=== PATIENT | male | born 1985 | race Caucasian/White ===

== ENCOUNTER → 2019-11-27 20:26 | Outpatient (CLI) | payer OTHER, SELFPAY ==
[2019-09-08 11:15] VITALS: BMI 26.6
[2019-11-18 10:40] VITALS: BMI 26.6
== END ==
LOC: SL 20:26
PROVIDERS: Referring Provider Specialist; Visit Provider Specialist
DX: G47.30 Sleep apnea, unspecified (principal)
CPT/HCPCS: 95810

== ENCOUNTER → 2019-12-26 20:46 | Outpatient (CLI) | payer OTHER, SELFPAY ==
[2019-11-18 10:40] VITALS: BMI 26.6
== END ==
PROVIDERS: Visit Provider Nurse Practitioner Acute Care
DX: G47.33 Obstructive sleep apnea (adult) (pediatric) (principal)
CPT/HCPCS: 95811

== ENCOUNTER → 2020-01-21 13:48 | Outpatient (CLI) | payer OTHER, SELFPAY ==
[2020-01-07 15:53] VITALS: BMI 28.8
== END ==
PROVIDERS: Referring Provider Nurse Practitioner Acute Care; Visit Provider Nurse Practitioner Acute Care
DX: Z00.00 Encounter for general adult medical examination without abnormal findings (principal)

== ENCOUNTER → 2020-02-19 14:07 | Outpatient (CLI) | payer OTHER, SELFPAY ==
[2020-01-07 15:53] VITALS: BMI 28.8
--- NOTE | 2020-02-19 14:08 | STE_ITS ---
Reason For Study: Chest Pain; Palpitations Stress Results Protocol: [facility]ando Protocol Maximum Predicted HR: 187 bpm Target HR: 159 bpm % Maximum Predicted HR: 90 % DurationHeart Rate Stage (mm:ss) (bpm) BP Comment Baseline 77 122/86Mild Chest Pain [facility]ando Protocol Stage I 3:00 96 116/70Mild Chest Pain [facility]ando Protocol Stage II 3:00 108 128/68Mild Chest Pain [facility]ando Protocol Stage III 3:00 118 134/60Mild Chest Pain Armando Protocol Stage IV 3:00 153 146/74Mild Chest Pain Armando Protocol Stage V 3:00 169 140/72Mild to Mod Chest Pain Recovery 106 126/70Mild Chest Pain Stress Duration: 15:00 mm:ss Maximum Stress HR: 169 bpm METS: 17 Baseline Echocardiogram Findings The estimated ejection fraction is 60 %. Post stress EF is 70%. Stress Echo Wall motion Data Resting WM Intermediate WM Stress WM Resting Wall Motion Wall Motion Stress No regional wall motion No regional wall motion abnormalities noted. abnormalities noted. EKG Data The baseline ECG demonstrates normal sinus rhythm with at rate of _ beats per minute. No significant ischemic ST T changes. occasional PVCs. Symptoms with Stress The patient experinced no chest pain . Interpretation Summary The estimated ejection fraction is 60 %. Stress echo is negative for stress induced chest pain or EKG or echocardiographic changes of ischemia. Ordering Physician: Otilio Hare Referring Physician: Shanon Castañeda Performed By: Rosa Washington, SHAWN, RVT
== END ==
PROVIDERS: Visit Provider Nurse Practitioner Family
DX: R07.9 Chest pain, unspecified (principal); I48.0 Paroxysmal atrial fibrillation; R00.2 Palpitations
CPT/HCPCS: 93017; 93350

== ENCOUNTER 2020-10-30 17:40 | Emergency (ER) | payer OTHER, SELFPAY ==
[2020-07-21 10:37] VITALS: BMI 27.6
[2020-10-30 17:41] VITALS: BP 120/76; PULSE 68; RESP 23; TEMP 36.6; O2SAT 95; BMI 28.3
--- NOTE | 2020-10-30 18:21 | EDS_ITS ---
HPI History of Present Illness Chief Complaint: Dizziness Narrative Narrative: 35-year-old male presenting with dizziness and nausea. He states is worse with head turning. He began feeling nauseous at a at a wedding with a lot of people. He only had one half of beer per his girlfriend. She states that he had been acting very anxious throughout the day and usually gets anxious in big crowds. She states he was biting his nails and not very talkative. When he sat down to eat he became very flush and nauseous and stated that he was dizzy and describes this as vertiginous. He denies any drugs. He has no history of this. Is a previous history of paroxysmal A. fib and from a cardiac standpoint was just placed on aspirin. [facility] Medical History Chest pain GERD (gastroesophageal reflux disease) Irritable bowel syndrome with diarrhea Palpitations Paroxysmal atrial fibrillation Home Medications aspirin 81 mg tablet,delayed release 81 mg PO DAILY 12/19/19 [History Last Taken Unknown] multivitamin 1 tablet PO DAILY 07/21/20 [History Last Taken Unknown] meclizine 25 mg PO TID #30 tab 10/30/20 [Rx Last Taken Unknown] Allergy/AdvReac Type Severity Reaction Status Date / Time No Known Allergies Allergy Verified 10/30/20 17:43 Family History Father CAD (coronary artery disease), Onset Age: 65 CABG X 3 Grandfather CAD (coronary artery disease) CVA (cerebral vascular accident) Grandfather CAD (coronary artery disease) Surgical History History of left inguinal hernia repair (~2012) Social History Smoking Status: Heavy Smoker (>10/day) how long ago did patient quit smokin years ago alcohol intake: current alcohol intake frequency: a few times a week Alcohol type: beer substance use type: does not use caffeine: Yes Type: coffee and other ROS ROS ED Constitutional Constitutional ED: Denies chills or fever(s) Eyes Eyes: Denies blurry vision or diplopia ENT ENT ED: Reports other Details: Vertiginous dizziness ; Denies rhinorrhea or sore throat Cardiovascular Cardiovascular: Denies chest pain or palpitations Respiratory/Chest Respiratory/Chest: Denies cough, dyspnea or sputum Gastrointestinal Gastrointestinal: Reports nausea and vomiting; Denies abdominal pain Genitourinary Genitourinary ED: Denies dysuria or hematuria Musculoskeletal Musculoskeletal: Denies arthralgias or myalgias Neurologic Neurologic: Denies headache(s) or paresthesias Psychiatric Psychiatric: Reports anxiety; Denies depression, suicidal ideation or suicidal thoughts EXAM Physical Exam Const Vital Signs: 10/30/20 17:41 10/30/20 17:43 10/30/20 19:12 Temperature 97.8 F Temperature Source Oral Pulse Rate 68 69 Respiratory Rate 23 H 16 Respiratory Effort Normal Non-Labored Blood Pressure 120/76 123/83 H Blood Pressure Mean 90 96 Pulse Ox 95 100 Oxygen Delivery Method Room Air Room Air 10/30/20 19:56 Temperature Temperature Source Pulse Rate 62 Respiratory Rate 14 Respiratory Effort Blood Pressure 113/74 Blood Pressure Mean Pulse Ox 100 Oxygen Delivery Method HEENT Reports moist mucous membranes Negative for trauma Eyes PERRL and EOMs intact bilaterally Eyes Narrative: Nystagmus to the left with modified Cheryl-Hallpike. General Eye ED: Negative for pale conjunctiva or scleral icterus Chest Wall inspection of chest normal and palpation of chest normal Resp normal respiratory effort and clear to auscultation bilaterally Cardio regular rate and regular rhythm Neuro oriented x3 and CN's II-XII intact bilaterally Sensorium / Orientation: alert; Negative for orientation impaired Motor Exam: strength 5/5 throughout Psych mental status grossly normal Skin no rashes or lesions noted and no wounds MDM MDM MDM Narrative Medical decision making narrative: Patient presenting with vertiginous symptoms. He does have vertigo with head turning and nystagmus with modified Edison- Hallpike. He was given meclizine and Phenergan and watched for about an hour. He states he feels improved but he is tired. I will discharge the patient home with meclizine. He is discharged in stable condition. Impression: 1. Vertigo Discharge Plan Triage Chief Complaint: Dizziness ED Provider: Guicho Jiang Dx/Rx/DC Orders Prescriptions: New meclizine 25 mg tablet,chewable 25 mg PO TID Qty: 30 RF: 0 No Action aspirin [Aspir-81] 81 mg tablet,delayed release (DR/EC) 81 mg PO DAILY RF: 0 multivitamin [Daily Multi-Vitamin] Tablet 1 tablet PO DAILY RF: 0 Primary Care Provider: Watson Jacobson NP Referrals: Watson Jacobson NP, [facility] [Primary Care Provider] - Disposition Disposition: Home, Self Care
[2020-10-30] MEDS: proMETHazine 25 MG Tablet PO (18:40)
[2020-10-30] MEDS: Meclizine HCl 25 MG Tablet PO (18:42)
[2020-10-30 19:12] VITALS: BP 123/83; PULSE 69; RESP 16; O2SAT 100
[2020-10-30 19:56] VITALS: BP 113/74; PULSE 62; RESP 14; O2SAT 100
== END 2020-10-30 20:56 | disposition home or self-care (01) ==
PROVIDERS: Emergency Provider Student in an Organized Health Care Education/Training Program; PCP Nurse Practitioner Family
DX: R42 Dizziness and giddiness (principal); F17.200 Nicotine dependence, unspecified, uncomplicated; Z79.82 Long term (current) use of aspirin
CPT/HCPCS: 99284; J7030